=== PATIENT | female | born 1950 | race Caucasian/White ===

== ENCOUNTER → 2017-04-18 | Outpatient (REF) | payer MEDICARE, OTHER ==
[~2017-04-18] MED LIST: ASPI81TA85 PO; ATOR40TA75 PO; BYST5TAB2 PO; CITA10TA5 PO; EDARBI PO; MOME50SP; VENTAER
== END ==
LOC: M LAB REF 13:15
PROVIDERS: ATTEND Family Medicine
DX: R79.9 Abnormal finding of blood chemistry, unspecified (principal)

== ENCOUNTER 2017-04-25 23:06 | Emergency (ER) | payer MEDICARE, OTHER ==
[~2017-04-25] VITALS: Ht 162.6 cm; Wt 84.5 kg
[2017-04-25] MEDS ORDERED: MOME50SP (23:22)
[2017-04-25] MEDS ORDERED: CITA10TA5 PO (23:22)
[2017-04-25] MEDS ORDERED: VENTAER (23:22)
[2017-04-25] MEDS ORDERED: ASPI81TA85 PO (23:22)
[2017-04-25] MEDS ORDERED: EDARBI PO (23:22)
[2017-04-25] MEDS ORDERED: BYST5TAB2 PO (23:22)
[2017-04-25] MEDS ORDERED: ATOR40TA75 PO (23:22)
[2017-04-25 23:41] LABS: BASO # 0.1 10^3/uL (0.0-0.2); BASO % 0.7 % (0.0-1.0); EOS # 0.3 10^3/uL (0.0-0.50); EOS % 2.9 % (0.0-3.0); IMMATURE GRANULOCYTE % 0.2 % (0-0); LYMPH # 3.7 10^3/uL (1.5-4.5); LYMPH % 39.4 % (24.0-44.0); MEAN CORPUSCULAR HEMOGLOBIN 32.1 pg (27.0-33.0); MEAN CORPUSCULAR HGB CONC 32.9 g/dl (32.0-36.5); MEAN CORPUSCULAR VOLUME 97.4 fl (80.0-96.0); MONO # 1.2 10^3/uL (0.0-0.8); MONO % 12.6 % (0.0-5.0); NEUTROPHILS # 4.2 10^3/uL (1.8-7.7); NEUTROPHILS % 44.2 % (36.0-66.0); PLATELET COUNT, AUTOMATED 239 10^3/uL (150-450); RED CELL DISTRIBUTION WIDTH 12.6 % (11.5-14.5); WHITE BLOOD COUNT 9.5 10^3/uL (4.0-10.0)
[2017-04-25 23:55] LABS: ANION GAP 6 MEQ/L (8-16); BLOOD UREA NITROGEN 19 MG/DL (7-18); CALCIUM LEVEL 9.4 MG/DL (8.8-10.2); CARBON DIOXIDE LEVEL 32 MEQ/L (21-32); CHLORIDE LEVEL 104 MEQ/L (98-107); CREATININE FOR GFR 0.86 MG/DL (0.55-1.02); GLOMERULAR FILTRATION RATE > 60.0 (>45); GLUCOSE, FASTING 97 MG/DL (80-110); MAGNESIUM LEVEL 2.3 MG/DL (1.8-2.4); POTASSIUM SERUM 3.4 MEQ/L (3.5-5.1); SODIUM LEVEL 142 MEQ/L (136-145); T UPTAKE 34 % (30-39); THYROXINE (T4) 8.1 UG/DL (4.5-12.0)
[2017-04-26 00:53] VITALS: BP 161/74
--- NOTE | 2017-04-28 08:15 | ECGEPIP ---
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
== END 2017-04-26 00:57 | disposition home or self-care (01) ==
LOC: M ED 23:06
DX: R00.2 Palpitations (principal); E78.5 Hyperlipidemia, unspecified; I47.1 Supraventricular tachycardia; F32.9 Major depressive disorder, single episode, unspecified; F41.9 Anxiety disorder, unspecified; Z88.2 Allergy status to sulfonamides; Z88.0 Allergy status to penicillin; Z79.899 Other long term (current) drug therapy; Z79.82 Long term (current) use of aspirin

== ENCOUNTER → 2017-06-18 | Outpatient (REF) | payer MEDICARE, OTHER ==
[2017-06-18 18:37] LABS: GAMMA GLUTAMYLTRANSPEPTIDASE 81 U/L (5-55)
== END ==
LOC: M LAB REF 16:01
DX: R74.8 Abnormal levels of other serum enzymes (principal)
CPT/HCPCS: 82977

== ENCOUNTER 2017-06-30 10:08 | Day surgery (SDC) | payer MEDICARE, OTHER ==
[~2017-06-30 10:08] MED LIST changes: -ASPI81TA85 PO; -ATOR40TA75 PO; -BYST5TAB2 PO; -CITA10TA5 PO; -EDARBI PO; -MOME50SP; +NS 1,000 ML IV; -VENTAER
[2017-06-30] MEDS ORDERED: LIDOCAINE 2% INJ 100 MG/5 ML SDV (FOR ANES.) As Ordered (11:34)
[2017-06-30] MEDS ORDERED: PROPOFOL 200 MG/20 ML VIAL As Ordered ×2 (11:34)
== END 2017-06-30 12:14 | disposition home or self-care (01) ==
LOC: M OPP 10:08
DX: Z12.11 Encounter for screening for malignant neoplasm of colon (principal); D12.3 Benign neoplasm of transverse colon; K63.3 Ulcer of intestine; K64.0 First degree hemorrhoids; R00.8 Other abnormalities of heart beat; R00.0 Tachycardia, unspecified; I10 Essential (primary) hypertension; E78.5 Hyperlipidemia, unspecified; R12 Heartburn; K21.9 Gastro-esophageal reflux disease without esophagitis; F41.9 Anxiety disorder, unspecified; F32.9 Major depressive disorder, single episode, unspecified; Z78.0 Asymptomatic menopausal state; R06.83 Snoring; Z88.0 Allergy status to penicillin; Z88.2 Allergy status to sulfonamides; Z79.82 Long term (current) use of aspirin; Z79.899 Other long term (current) drug therapy; Z80.8 Family history of malignant neoplasm of other organs or systems
CPT/HCPCS: 45385

== ENCOUNTER → 2021-04-05 | Outpatient (REF) | payer MEDICARE, OTHER ==
[~2021-04-05] MED LIST changes: +ASPI81TA86 PO; +ATOR40TA75 PO; +BYST5TAB2 PO; +CITA10TA5 PO; +EDARBI PO; +MOME50SP; +NAPR-855 PO; -NS 1,000 ML IV; +SALI0.6528; +TAZO0.052 EX; +VENTAER; +[UNRECOGNIZED DRUG - CODE] EX; +[UNRECOGNIZED DRUG - OTHER] TOP
== END ==
LOC: M LAB REF 16:25
PROVIDERS: ATTEND Nurse Practitioner Adult Health
DX: R30.0 Dysuria (principal)

== ENCOUNTER → 2022-03-13 | Outpatient (CLI) | payer MEDICARE, OTHER ==
[~2022-03-13] MED LIST changes: -CITA10TA5 PO; +CITA10TA7 PO; -MOME50SP; +NASO50SP3
== END ==
LOC: M WHC 11:05
PROVIDERS: ATTEND Family Medicine
DX: M81.0 Age-related osteoporosis without current pathological fracture (principal); M85.89 Other specified disorders of bone density and structure, multiple sites

== ENCOUNTER 2022-11-11 11:14 | Day surgery (SDC) | payer MEDICARE, OTHER ==
[~2022-11-11] VITALS: Ht 162.6 cm; Wt 84.1 kg
[~2022-11-11 11:14] MED LIST changes: +ASPI81TA26 PO; +CITA20TA6 PO; +LIDOCAINE 2% 100MG/5ML SDV (FOR ANES.) As Ordered ONE; +NS 1,000 ML IV ONE; +QVAR40AE12 INH; +SYNT50TA PO
[2022-11-11] MEDS ORDERED: propofoL 200 MG/20 ML VIAL As Ordered ONE (12:10)
[2022-11-11] MEDS ORDERED: PHENYLephrine 500MCG 5ML (100MCG/ML) SYRINGE As Ordered ONE (12:31)
[2022-11-11] MEDS ORDERED: ePHEDrine SULFATE 25 MG/5 ML(5MG/ML) SYRINGE As Ordered ONE (12:36)
[2022-11-11 12:52] VITALS: TEMP 97.8
[2022-11-11 13:13] VITALS: BP 114/56; O2SAT 95
== END 2022-11-11 13:17 | disposition home or self-care (01) ==
LOC: M OPP 11:14
PROVIDERS: ATTEND Internal Medicine Gastroenterology
DX: Z86.010 Personal history of colon polyps (principal); K63.5 Polyp of colon; K64.0 First degree hemorrhoids; K57.30 Diverticulosis of large intestine without perforation or abscess without bleeding; I10 Essential (primary) hypertension; E78.5 Hyperlipidemia, unspecified; E03.9 Hypothyroidism, unspecified; K21.9 Gastro-esophageal reflux disease without esophagitis; F41.9 Anxiety disorder, unspecified; J45.909 Unspecified asthma, uncomplicated; Z88.2 Allergy status to sulfonamides; Z88.8 Allergy status to other drugs, medicaments and biological substances; Z79.82 Long term (current) use of aspirin; Z79.890 Hormone replacement therapy; Z79.899 Other long term (current) drug therapy
CPT/HCPCS: 45380; 88305; J2370

== ENCOUNTER 2023-02-16 13:24 | Observation (INO) | payer MEDICARE, OTHER ==
[~2023-02-16] VITALS: Ht 162.6 cm; Wt 84.9 kg
[~2023-02-16 13:24] MED LIST changes: -LIDOCAINE 2% 100MG/5ML SDV (FOR ANES.) As Ordered ONE; -NS 1,000 ML IV ONE
[2023-02-16 14:38] LABS: BASO # 0.1 10^3/uL (0.0-0.2); BASO % 0.6 % (0.0-1.0); EOS # 0.1 10^3/uL (0.0-0.5); EOS % 1.1 % (0.0-3.0); HEMATOCRIT 43.7 % (36.0-47.0); HEMOGLOBIN 14.2 g/dl (12.0-15.5); LYMPH # 1.1 10^3/uL (1.5-5.0); LYMPH % 14.2 % (24.0-44.0); MEAN CORPUSCULAR HEMOGLOBIN 31.1 pg (27.0-33.0); MEAN CORPUSCULAR HGB CONC 32.5 g/dl (32.0-36.5); MEAN CORPUSCULAR VOLUME 95.8 fl (80.0-96.0); MONO # 0.7 10^3/uL (0.0-0.8); MONO % 8.4 % (2.0-8.0); NEUTROPHILS % 75.6 % (36.0-66.0); PLATELET COUNT, AUTOMATED 236 10^3/uL (150-450); RED BLOOD COUNT 4.56 10^6/uL (4.00-5.40)
[2023-02-16 14:48] LABS: LIPASE 69 U/L (12-53)
[2023-02-16 14:51] LABS: ALBUMIN 3.9 G/DL (3.2-5.2); ALKALINE PHOSPHATASE 89 U/L (46-116); ALT/SGPT 29 U/L (7.0-40); AST/SGOT 24 U/L (<34); BILIRUBIN,DIRECT 0.2 MG/DL (<0.4); BILIRUBIN,TOTAL 1.1 MG/DL (0.3-1.2); BLOOD UREA NITROGEN 26 MG/DL (9-23); CALCIUM LEVEL 9.3 MG/DL (8.3-10.6); CARBON DIOXIDE LEVEL 26 MMOL/L (20-31); CHLORIDE LEVEL 105 MMOL/L (98-107); CK-MB VALUE MASS < 1.0 NG/ML (<3.6); GLOMERULAR FILTRATION RATE > 60.0 (>39); GLUCOSE, FASTING 158 MG/DL (74-106); MAGNESIUM LEVEL 1.8 MG/DL (1.8-2.4); POTASSIUM SERUM 4.5 MMOL/L (3.5-5.1); SODIUM LEVEL 140 MMOL/L (136-145); TOTAL PROTEIN 7.3 G/DL (5.7-8.2)
[2023-02-16 14:55] LABS: FREE T4 1.16 NG/DL (0.89-1.76); THYROID STIMULATING HORMONE 3.141 uIU/ML (0.55-4.78)
[2023-02-16 14:56] LABS: CPK CREATINE PHOSPHOKINASE 95 U/L (34-145); MB/CK RELATIVE INDEX 1.05 (< OR =4)
[2023-02-16 14:59] LABS: RSV AMPLIFICATION NEGATIVE (NEGATIVE)
[2023-02-16 15:54] LABS: CK-MB VALUE MASS < 1.0 NG/ML (<3.6)
[2023-02-16 15:55] LABS: CPK CREATINE PHOSPHOKINASE 90 U/L (34-145); MB/CK RELATIVE INDEX 1.11 (< OR =4)
[2023-02-16 17:04] LABS: MAGNESIUM LEVEL 2.1 MG/DL (1.8-2.4)
[2023-02-16] MEDS ORDERED: HOME MED LIST COMPLETE! XX SCH (18:10)
[2023-02-16 18:45] VITALS: BP 149/75; O2SAT 95
[2023-02-16 19:59] VITALS: BP_SYST 146; BP_SYST 148; BP_SYST 154; BP_DIAS 76; BP_DIAS 79; TEMP 98.1; O2SAT 96
[2023-02-16 20:04] VITALS: BP 154/79
[2023-02-16 20:08] VITALS: BP 146/79
[2023-02-16] MEDS: BUDESONIDE 180MCG INHALER (PULMICORT FLEXHALER) INH SCH (20:22)
[2023-02-16] MEDS ORDERED: ATORVASTATIN 20 MG TAB PO SCH (21:00)
[2023-02-16] MEDS ORDERED: CitaloPRAM (CeleXA) 20 MG TAB PO SCH (21:00)
[2023-02-16] MEDS ORDERED: NEBIVOLOL 5 MG TAB (BYSTOLIC) PO SCH (21:00)
[2023-02-16] MEDS ORDERED: ASPIRIN 81MG ENTERIC TABLET PO SCH (21:00)
[2023-02-17 06:00] VITALS: BP 128/60; TEMP 97.2; O2SAT 98
[2023-02-17] MEDS ORDERED: LEVOTHYROXINE 50MCG TABLET (0.05MG) PO SCH (06:00)
[2023-02-17 06:54] LABS: HEMATOCRIT 43.6 % (36.0-47.0); HEMOGLOBIN 13.8 g/dl (12.0-15.5); MEAN CORPUSCULAR HGB CONC 31.7 g/dl (32.0-36.5); PLATELET COUNT, AUTOMATED 233 10^3/uL (150-450); RED BLOOD COUNT 4.45 10^6/uL (4.00-5.40); WHITE BLOOD COUNT 7.5 10^3/uL (4.0-10.0)
[2023-02-17 07:20] LABS: BLOOD UREA NITROGEN 17 MG/DL (9-23); CALCIUM LEVEL 9.2 MG/DL (8.3-10.6); CARBON DIOXIDE LEVEL 27 MMOL/L (20-31); CHLORIDE LEVEL 107 MMOL/L (98-107); CREATININE FOR GFR 0.81 MG/DL (0.55-1.30); GLOMERULAR FILTRATION RATE > 60.0 (>39); GLUCOSE, FASTING 98 MG/DL (74-106); POTASSIUM SERUM 4.4 MMOL/L (3.5-5.1); SODIUM LEVEL 142 MMOL/L (136-145)
[2023-02-17] MEDS: BUDESONIDE 180MCG INHALER (PULMICORT FLEXHALER) INH SCH (07:32)
[2023-02-17 08:17] VITALS: BP 139/79
[2023-02-17] MEDS ORDERED: ENOXAPARIN 40MG/0.4ML SYRINGE (J1650 PER 10MG) SC SCH (09:00)
[2023-02-17] MEDS ORDERED: LOSARTAN 25 MG TAB PO SCH (09:00)
[2023-02-17] MEDS ORDERED: BYST5TAB2 PO ×2 (11:38→12:04)
[2023-02-17] MEDS ORDERED: ALPR0.25 PO ×2 (11:38→12:04)
== END 2023-02-17 13:06 | disposition home or self-care (01) ==
LOC: M ED 13:24 → M ED INP 16:31 → M MSPAV 18:51
PROVIDERS: ADMIT Internal Medicine; ATTEND Internal Medicine
DX: R55 Syncope and collapse (principal); R00.2 Palpitations; Z86.79 Personal history of other diseases of the circulatory system; E03.9 Hypothyroidism, unspecified; F32.A Depression, unspecified; I25.10 Atherosclerotic heart disease of native coronary artery without angina pectoris; E78.5 Hyperlipidemia, unspecified; J45.20 Mild intermittent asthma, uncomplicated; I10 Essential (primary) hypertension; Z79.82 Long term (current) use of aspirin; Z79.899 Other long term (current) drug therapy; Z88.2 Allergy status to sulfonamides; Z88.8 Allergy status to other drugs, medicaments and biological substances
CPT/HCPCS: 36415; 71045; 80048; 80076; 82550; 82553; 83690; 83735; 84439; 84443; 84484; 85025; 85027; 87631; 93005; 93041; 93306; 94640; 94760; 96372; 99285; G0378; J1650

== ENCOUNTER → 2023-03-28 | Outpatient (CLI) | payer MEDICARE, OTHER ==
[~2023-03-28] MED LIST changes: +ALPR0.25 PO
== END ==
LOC: M SLEEP HO 11:01
PROVIDERS: ATTEND Internal Medicine Cardiovascular Disease
DX: R06.83 Snoring (principal)